=== PATIENT | female | born 1965 | race Caucasian/White ===

== ENCOUNTER → 2018-06-18 | Outpatient (CLI) | payer OTHER ==
[~2018-06-18] MED LIST: RT-ALBUTEROL SULF 2.5 MG/3 ML PRE-MIX VIAL INH ONE; RT-ALBUTEROL SULF 2.5 MG/3 ML PRE-MIX VIAL ONE
--- NOTE | 2018-06-18 19:07 | Diagnostic Imaging Report ---
INDICATION: Degenerative joint disease, hip pain. COMPARISON: None. FINDINGS: Single view of the pelvis and multiple views of bilateral hips demonstrate no fracture or dislocation. There is no significant joint space narrowing or sclerosis. SI joints are symmetric. There is no osseous lesion. IMPRESSION: Negative pelvis and bilateral hips. Dictated by: Dictated on workstation # [id number]
== END ==
LOC: RT 15:06
PROVIDERS: ATTEND Physical Medicine & Rehabilitation
DX: Z02.71 Encounter for disability determination (principal)
CPT/HCPCS: 73523; 94060

== ENCOUNTER 2018-11-26 03:07 | Emergency (ER) | payer MEDICAID ==
[~2018-11-26] VITALS: Ht 165.1 cm; Wt 164.2 kg
[2018-11-26] MEDS ORDERED: LISI-552 (03:50)
[2018-11-26] MEDS ORDERED: METF500T8 (03:50)
[2018-11-26] MEDS ORDERED: IPRA0.2S51 (03:50)
[2018-11-26] MEDS ORDERED: RT-ALBUINH (03:50)
[2018-11-26] MEDS ORDERED: TIOT18CA2 (03:50)
[2018-11-26 03:56] LABS: BILIRUBIN,URINE NEGATIVE (NEGATIVE); CLARITY,URINE CLEAR; COLOR,URINE YELLOW; GLUCOSE, URINE (UA) NEGATIVE (NEGATIVE); KETONES,URINE NEGATIVE (NEGATIVE); LEUKOCYTE ESTERASE ,URINE 1+ (NEGATIVE); NITRITE,URINE NEGATIVE (NEGATIVE); PH,URINE 6 (5-9); PROTEIN,URINE 1+ (NEGATIVE); UROBILINOGEN,URINE 4 MG/DL (NORMAL)
[2018-11-26 04:04] LABS: BACTERIA,URINE FEW /HPF
[2018-11-26] MEDS ORDERED: LABETALOL HCL 20 MG/4 ML VIAL IV ONE (04:15)
[2018-11-26 04:23] LABS: BASOPHILS % (AUTO) 0 % (0-10); EOSINOPHILS # (AUTO) 0.1 10^3/uL (0.0-0.3); EOSINOPHILS % (AUTO) 1 % (0-10); HEMATOCRIT 46 % (35-52); HEMOGLOBIN 14.9 G/DL (11.5-16.0); LYMPHOCYTES # (AUTO) 1.5 X 10^3 (1.0-4.0); LYMPHOCYTES % (AUTO) 15 % (12-44); MEAN CORPUSCULAR HEMOGLOBIN 29 PG (25-34); MEAN CORPUSCULAR HGB CONC 33 G/DL (32-36); MEAN CORPUSCULAR VOLUME 89 FL (80-99); MEAN PLATELET VOLUME 11.1 FL (7.4-10.4); MONOCYTES # (AUTO) 0.5 X 10^3 (0.0-1.0); MONOCYTES % (AUTO) 5 % (0-12); NEUTROPHILS # (AUTO) 7.7 X 10^3 (1.8-7.8); NEUTROPHILS % (AUTO) 78 % (42-75); PLATELET COUNT 154 10^3/uL (130-400); RED BLOOD COUNT 5.14 10^6/uL (4.35-5.85); RED CELL DISTRIBUTION WIDTH 14.7 % (10.0-14.5); WHITE BLOOD COUNT 9.8 10^3/uL (4.3-11.0)
[2018-11-26 04:46] LABS: ALANINE AMINOTRANSFERASE 32 U/L (0-55); ALBUMIN 3.8 GM/DL (3.2-4.5); ALKALINE PHOSPHATASE 98 U/L (40-136); BILIRUBIN,TOTAL 0.7 MG/DL (0.1-1.0); BUN/CREATININE RATIO 10; CARBON DIOXIDE 28 MMOL/L (21-32); CHLORIDE 104 MMOL/L (98-107); CREATININE SERUM 0.77 MG/DL (0.60-1.30); GFR ESTIMATED > 60; GLUCOSE 132 MG/DL (70-105); LIPASE 18 U/L (8-78); POTASSIUM 4.5 MMOL/L (3.6-5.0); SODIUM 143 MMOL/L (135-145); TOTAL PROTEIN 6.4 GM/DL (6.4-8.2)
[2018-11-26] MEDS ORDERED: ENALAPRILAT 2.5 MG/2 ML (VASOTEC) VIAL IV ONE (05:00)
[2018-11-26] MEDS ORDERED: CIPR-225 PO (06:20)
[2018-11-26] MEDS ORDERED: METR500T PO (06:20)
--- NOTE | 2018-11-26 06:21 | ED Abdominal Pain ---
General Chief Complaint: Abdominal/GI Problems Stated Complaint: ABD PAIN Nursing Triage Note: left lower abdominal pain/constipation. Sepsis Screen: No Definite Risk Source of Information: Patient Exam Limitations: No Limitations History of Present Illness Date Seen by Provider: Nov 26, 2018 Time Seen by Provider: 03:18 Initial Comments This 53-year-old woman presents to emergency room with complaints of lower abdominal pain in the suprapubic and left lower quadrant regions. This has been worsening for about 10 days. She has felt somewhat constipated but has been passing small stools daily. She denies any blood in her stools. She has had some nausea without vomiting. No diarrhea. She is notably hypertensive and admits to not taking her blood pressure medications yesterday because she was feeling ill. She is morbidly obese which limits her exam inability to obtain accurate blood pressures. She denies any fevers. Patient states a history of recurrent urinary tract infections. She denies any history of kidney stones. Allergies and Home Medications Allergies Coded Allergies: promethazine (Verified Allergy, Unknown, 11/26/18) Home Medications Ciprofloxacin HCl 500 Mg Tablet, 500 MG PO BID Prescribed by: VIVIAN LAY on 11/26/18 0620 Metronidazole 500 Mg Tablet, 500 MG PO TID Prescribed by: VIVIAN LAY on 11/26/18 0620 Patient Home Medication List Home Medication List Reviewed: Yes Review of Systems Review of Systems Constitutional: no symptoms reported EENTM: No Symptoms Reported Respiratory: No Symptoms Reported Cardiovascular: See HPI Gastrointestinal: See HPI Genitourinary: No Symptoms Reported Musculoskeletal: no symptoms reported Skin: no symptoms reported Psychiatric/Neurological: No Symptoms Reported Endocrine: No Symptoms Reported Hematologic/Lymphatic: No Symptoms Reported Past Uvbpsqv-Rggdey-Zlhcow Hx Past Med/Social Hx: Reviewed and Corrections made Patient Social History Alcohol Use: Denies Use Recreational Drug Use: Yes Drug of Choice: cannibus Smoking Status: Never a Smoker 2nd Hand Smoke Exposure: No Recent Foreign Travel: No Contact w/Someone Who Travel: No Recent Infectious Disease Expo: No Recent Hopitalizations: No Immunizations Up To Date Tetanus Booster (TDap): Unknown Seasonal Allergies Seasonal Allergies: No Past Medical History Surgeries: Yes Abdominal, Gallbladder, Hysterectomy Respiratory: Yes Asthma, COPD Currently Using CPAP: No Currently Using BIPAP: No Cardiac: Yes Hypertension Neurological: No : No Reproductive Disorders: No 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 oz. 164.131037bq; BMI Method:Stated General Appearance: WD/WN, no apparent distress, obese HEENT: PERRL/EOMI, normal ENT inspection, pharynx normal Neck: normal inspection Respiratory: lungs clear, normal breath sounds, no respiratory distress, no accessory muscle use Cardiovascular: regular rate, rhythm, no edema, no murmur Gastrointestinal: normal bowel sounds, soft, tenderness (Lower abdomen suprapubic region) Extremities: normal inspection, no pedal edema Neurologic/Psychiatric: sulfur burner II-XII nml as tested, no motor/sensory deficits, alert, normal mood/affect, oriented x 3 Skin: normal color, warm/dry Exam Comments Body habitus significantly limits exam Progress/Results/Core Measures Results/Orders Lab Results Laboratory Tests Test 11/26/18 03:38 11/26/18 04:15 Range/Units Urine Color YELLOW Urine Clarity CLEAR Urine pH 6 5-9 Urine Specific [place] 1.020 1.016-1.022 Urine Protein 1+ H NEGATIVE Urine Glucose (UA) NEGATIVE NEGATIVE Urine Ketones NEGATIVE NEGATIVE Urine Nitrite NEGATIVE NEGATIVE Urine Bilirubin NEGATIVE NEGATIVE Urine Urobilinogen 4 H NORMAL MG/DL Urine Leukocyte Esterase 1+ H NEGATIVE Urine RBC (Auto) 1+ H NEGATIVE Urine RBC 2-5 H /HPF Urine WBC 2-5 /HPF Urine Squamous Epithelial Cells 10-25 H /HPF Urine Crystals NONE /LPF Urine Bacteria FEW H /HPF Urine Casts NONE /LPF Urine Mucus NEGATIVE /LPF Urine Culture Indicated YES White Blood Count 9.8 4.3-11.0 10^3/uL Red Blood Count 5.14 4.35-5.85 10^6/uL Hemoglobin 14.9 11.5-16.0 G/DL Hematocrit 46 35-52 % Mean Corpuscular Volume 89 80-99 FL Mean Corpuscular Hemoglobin 29 25-34 PG Mean Corpuscular Hemoglobin Concent 33 32-36 G/DL Red Cell Distribution Width 14.7 H 10.0-14.5 % Platelet Count 154 130-400 10^3/uL Mean Platelet Volume 11.1 H 7.4-10.4 FL Neutrophils (%) (Auto) 78 H 42-75 % Lymphocytes (%) (Auto) 15 12-44 % Monocytes (%) (Auto) 5 0-12 % Eosinophils (%) (Auto) 1 0-10 % Basophils (%) (Auto) 0 0-10 % Neutrophils # (Auto) 7.7 1.8-7.8 X 10^3 Lymphocytes # (Auto) 1.5 1.0-4.0 X 10^3 Monocytes # (Auto) 0.5 0.0-1.0 X 10^3 Eosinophils # (Auto) 0.1 0.0-0.3 10^3/uL Basophils # (Auto) 0.0 0.0-0.1 10^3/uL Sodium Level 143 135-145 MMOL/L Potassium Level 4.5 3.6-5.0 MMOL/L Chloride Level 104 98-107 MMOL/L Carbon Dioxide Level 28 21-32 MMOL/L Anion Gap 11 5-14 MMOL/L Blood Urea Nitrogen 8 7-18 MG/DL Creatinine 0.77 0.60-1.30 MG/DL Estimat Glomerular Filtration Rate > 60 BUN/Creatinine Ratio 10 Glucose Level 132 H 70-105 MG/DL Calcium Level 9.0 8.5-10.1 MG/DL Corrected Calcium 9.2 8.5-10.1 MG/DL Total Bilirubin 0.7 0.1-1.0 MG/DL Aspartate Amino Transf (AST/SGOT) 17 5-34 U/L Alanine Aminotransferase (ALT/SGPT) 32 0-55 U/L Alkaline Phosphatase 98 40-136 U/L Total Protein 6.4 6.4-8.2 GM/DL Albumin 3.8 3.2-4.5 GM/DL Lipase 18 8-78 U/L My Orders Orders - VIVIAN HAMEED MD Ua Culture If Indicated (11/26/18 03:18) Urine Culture (11/26/18 03:38) Labetalol Injection (Normodyne Injection (11/26/18 04:15) Cbc With Automated Diff (11/26/18 04:10) Comprehensive Metabolic Panel (11/26/18 04:10) Lipase (11/26/18 04:10) Saline Lock/Iv-Start (11/26/18 04:10) Enalaprilat Injection (Vasotec Injection (11/26/18 05:00) Ct Abdomen/Pelvis W Wo (11/26/18 04:50) Oxycodone/Apap 5/325mg Tablet (Percocet (11/26/18 06:30) Ketorolac Injection (Toradol Injection) (11/26/18 06:30) Lisinopril Tablet (Zestril Tablet) (11/26/18 06:30) Medications Given in ED Current Medications Medications Dose Ordered Sig/Turner Route Start Time Stop Time Status Last Admin Dose Admin Ketorolac Tromethamine 15 mg ONCE ONCE IVP 11/26/18 06:30 11/26/18 06:31 DC 11/26/18 06:29 15 MG Lisinopril 20 mg ONCE ONCE PO 11/26/18 06:30 11/26/18 06:31 DC 11/26/18 06:29 20 MG Oxycodone/ Acetaminophen 1 tab ONCE ONCE PO 11/26/18 06:30 11/26/18 06:31 DC 11/26/18 06:28 1 TAB Vital Signs/I&O 11/26/18 11/26/18 11/26/18 03:41 06:28 06:35 Temp 97.8 98.0 98.0 Pulse 88 75 Resp 18 16 B/P (MAP) 200/111 (140) 174/93 (120) Pulse Ox 96 95 O2 Delivery Room Air Room Air Blood Pressure Mean: 140 Progress Progress Note : Progress Note Patient was first assessed with urinalysis. There was a very small amount of blood in her urine but it did not suggest significant infection. Further evaluation was pursued with blood work. Blood work was relatively unremarkable. I offered further assessment with a CT scan. Patient elected to proceed. CT of the abdomen and pelvis was performed with and without contrast. This modality was selected as interpretation of study could be difficult due to patient's body habitus. I was concerned about the possibility of ureteral stone versus a visceral pathology. Patient also later reported that she had a lower abdominal hernia which I also wanted to evaluate by CT scan. Patient was found to have notable diverticulitis. Patient was given Toradol and Percocet for her pain. Antibiotics were prescribed. Blood pressure was also major concern during this ER visit. Blood pressure was initially treated with labetalol which seemed to have no impact. After labs were reviewed enalaprilat was used which helped some. Blood pressures were difficult to obtain and a forearm cuff was used. After we successfully obtained a blood pressure from the upper arm she seemed to have more reasonable blood pressures. She was given her usual lisinopril 20 mg by mouth prior to dismissal as she would not be able to take her home medication for over an hour due to a long drive home. Diagnostic Imaging Diagonstic Imaging: CT Plain Films/CT/US/NM/MRI: abdomen, pelvis Comments CT abdomen and pelvis was viewed by me and [employer] report reviewed. There is diverticulitis and a fat-containing abdominal hernia. Departure Impression Primary Impression: Diverticulitis of intestine Qualified Codes: K57.32 - Diverticulitis of large intestine without perforation or abscess without bleeding Additional Impression: Hypertensive urgency Disposition: 01 HOME, SELF-CARE Condition: Improved Departure-Patient Inst. Decision time for Depature: 06:18 Referrals: NO,LOCAL PHYSICIAN (PCP/Family) Primary Care Physician Patient Instructions: Diverticulitis (DC) Add. Discharge Instructions: Complete your antibiotics as prescribed. Today's dose of lisinopril was given in the ER. Resume your usual dose tomorrow morning. Drink a clear liquid diet today. If well tolerated, resume eating tomorrow starting with small quantities of bland food as tolerated. Gradually advance your diet. You may take ibuprofen up to 600 mg every 6 hours as needed and/or Tylenol ( acetaminophen) up to 1000 mg every 6 hours as needed for pain. Follow-up with your primary care provider within the next week. Return to care if symptoms worsen. All discharge instructions reviewed with patient and/or family. Voiced understanding. Scripts Metronidazole (Flagyl) 500 Mg Tablet 500 MG PO TID, #21 TAB Prov: VIVIAN HAMEED MD 11/26/18 Ciprofloxacin HCl (Cipro) 500 Mg Tablet 500 MG PO BID, #14 TAB Prov: VIVIAN HAMEED MD 11/26/18 VIVIAN HAMEED MD Nov 26, 2018 06:21
[2018-11-26] MEDS ORDERED: lisINopril 20 MG (PRINIVIL) TABLET PO ONE (06:30)
[2018-11-26] MEDS ORDERED: oxyCODONE/APAP 5/325MG (PERCOCET 5) TABLET PO ONE (06:30)
[2018-11-26] MEDS ORDERED: KETOROLAC 30 MG/ML VIAL IVP ONE (06:30)
[2018-11-26 06:35] VITALS: BP 174/93
--- NOTE | 2018-11-26 08:17 | Diagnostic Imaging Report ---
PROCEDURE: CT abdomen and pelvis with and without contrast. TECHNIQUE: Precontrast acquisitions were acquired through the abdomen and pelvis. Multiple contiguous axial images were obtained through the abdomen and pelvis after the administration of intravenous contrast. INDICATION: Abdominal pain. No prior studies are available for comparison. The lung bases are clear. Liver shows some mild decreased density suggestive of hepatic steatosis but no discrete liver mass is identified. The gallbladder is surgically absent. No biliary duct dilatation is seen. The pancreas and spleen are unremarkable apart from splenic granulomas. No adrenal mass is identified. Left kidney contains a tiny nonobstructing calculus. Kidneys unremarkable. No hydronephrosis is seen. Aorta is calcified but nonaneurysmal. No central, retroperitoneal or mesenteric lymphadenopathy is seen. Bowel loops are normal caliber. There is significant diverticular disease of the sigmoid colon as well as the distal descending colon. There is mee-sigmoidal inflammatory stranding present and the features are most consistent with acute diverticulitis. No bowel obstruction or abscess formation is seen. Note is made of a fat-containing umbilical hernia. The bladder is decompressed. No pelvic lymphadenopathy is seen. Bony structures are nonacute. IMPRESSION: 1. Findings are most consistent with acute sigmoid diverticulitis. No abscess formation or bowel obstruction is identified. 2. Fat-containing umbilical hernia. Dictated by: Dictated on workstation # [id number]
== END 2018-11-26 06:39 | disposition home or self-care (01) ==
LOC: EDUNIT# 03:07 → ER 03:11
DX: K57.32 Diverticulitis of large intestine without perforation or abscess without bleeding (principal); I16.0 Hypertensive urgency; I10 Essential (primary) hypertension; E66.01 Morbid (severe) obesity due to excess calories; J44.9 Chronic obstructive pulmonary disease, unspecified; E11.9 Type 2 diabetes mellitus without complications; F19.10 Other psychoactive substance abuse, uncomplicated; Z87.440 Personal history of urinary (tract) infections; Z90.710 Acquired absence of both cervix and uterus; Z68.44 Body mass index [BMI] 60.0-69.9, adult
CPT/HCPCS: 36415; 74178; 80053; 81000; 83690; 85025; 87088

== ENCOUNTER 2019-01-21 05:37 | Outpatient (CLI) | payer MEDICAID ==
[~2019-01-21] VITALS: Ht 165.1 cm; Wt 169.2 kg
[~2019-01-21 05:37] MED LIST changes: +CIPR-225 PO; +IPRA0.2S51 IH; +LISI-552 PO; +METF500T8 PO; +METR500T PO; +RT-ALBUINH IH; -RT-ALBUTEROL SULF 2.5 MG/3 ML PRE-MIX VIAL INH ONE; -RT-ALBUTEROL SULF 2.5 MG/3 ML PRE-MIX VIAL ONE; +TIOT18CA2 IH
[2019-01-21] MEDS ORDERED: CHOL500049 PO (13:24)
== END 2019-01-21 13:27 | disposition home or self-care (01) ==
LOC: PREOP 05:37
PROVIDERS: ATTEND Surgery
DX: Z01.818 Encounter for other preprocedural examination (principal)

== ENCOUNTER 2019-01-24 21:05 | Outpatient (CLI) | payer MEDICAID ==
[~2019-01-24 21:05] MED LIST changes: +CHOL500049 PO
== END 2019-01-25 07:32 | disposition home or self-care (01) ==
LOC: SLEEP 21:05
PROVIDERS: ATTEND Nurse Practitioner
DX: G47.33 Obstructive sleep apnea (adult) (pediatric) (principal); G47.10 Hypersomnia, unspecified; R06.83 Snoring; I10 Essential (primary) hypertension
CPT/HCPCS: 95811

== ENCOUNTER 2019-01-27 10:01 | Day surgery (SDC) | payer MEDICAID ==
[~2019-01-27] VITALS: Ht 165.1 cm; Wt 169.2 kg
[2019-01-27 10:05] VITALS: BP 189/97
[2019-01-27] MEDS ORDERED: LACTATED RINGERS 1,000 ML IV STA (10:14)
[2019-01-27] MEDS ORDERED: LACTATED RINGERS 1,000 ML IV ONE ×2 (10:27→12:10)
--- OUTSIDE RECORDS SUMMARY | 2019-01-27 10:40 | XMS REPORT ---
Author Author LORI MONSON Organization [facility] Address [address] [place] [address] Care Team Providers Care Patient Safety Attendant Name Role Phone LORI MONSON Unavailable PROBLEMS Type Condition ICD9-CM Code [id number] Code Onset Dates Condition Status SNOMED Code Problem Obstructive sleep apnea G47.33 Active 79429302 Problem Chronic obstructive pulmonary disease, unspecified COPD type J44.9 Active 92336738 Problem Severe episode of recurrent major depressive disorder, without psychotic features F33.2 Active 95635433 Problem Primary hypertension I10 Active 03728881 ALLERGIES No Information ENCOUNTERS Encounter Location Date Diagnosis [place] [id number] [address] Jul, Primary hypertension I10 [facility] [address] [address] Jun, Primary hypertension I10 and Chronic obstructive pulmonary disease, unspecified COPD type J44.9 [place] [address] [address] Jun, Primary hypertension I10 ; Chronic obstructive pulmonary disease, unspecified COPD type J44.9 ; Obstructive sleep apnea G47.33 ; Lower extremity edema R60.0 ; Severe episode of recurrent major depressive disorder, without psychotic features F33.2 and BMI 45.0-49.9, adult Z68.42 IMMUNIZATIONS No Known Immunizations SOCIAL HISTORY Never Assessed REASON FOR VISIT Lab (walk-in) PLAN OF CARE VITAL SIGNS MEDICATIONS Unknown Medications RESULTS No Results PROCEDURES Procedure Date Ordered Result Body Site ASSAY THYROID STIM HORMONE Jul 15, 2018 ASSAY OF FREE THYROXINE Jul 15, 2018 COMPREHEN METABOLIC PANEL Jul 15, 2018 LIPID PANEL Jul 15, 2018 VENIPUNCT, ROUTINE* Jul 15, 2018 COMPLETE CBC W/AUTO DIFF WBC Jul 15, 2018 INSTRUCTIONS MEDICATIONS ADMINISTERED No Known Medications MEDICAL (GENERAL) HISTORY Type Description Date Medical History htn Medical History copd Medical History sleep apnea Medical History asthma Medical History abdominal hernia Medical History degenerative arthritis--hips and back Medical History cervical cancer Surgical History hysterectomy--cervical cancer 2003 Surgical History cholecystectomy Surgical History lipoma removed Hospitalization History seizure 2011 Hospitalization History surgery
--- OUTSIDE RECORDS SUMMARY | 2019-01-27 10:40 | XMS REPORT ---
Author Author LORI MONSON Organization [facility] [place] Address [address] [place] [address] Care Team Providers Care Health Services Coordinator Name Role Phone LORI MONSON Unavailable PROBLEMS Type Condition ICD9-CM Code [id number] Code Onset Dates Condition Status SNOMED Code Problem Obstructive sleep apnea G47.33 Active 86793360 Problem Chronic obstructive pulmonary disease, unspecified COPD type J44.9 Active 01262804 Problem Severe episode of recurrent major depressive disorder, without psychotic features F33.2 Active 19786860 Problem Primary hypertension I10 Active 28851114 ALLERGIES Substance Reaction Event Type Date Status phenergan restless leg syndrome Non Drug Allergy Jun, Active ENCOUNTERS Encounter Location Date Diagnosis [facility] [place] [address] [address] Jul, Primary hypertension I10 [facility] [place] [address] [address] Jun, Primary hypertension I10 and Chronic obstructive pulmonary disease, unspecified COPD type J44.9 [place] [address] [address] Jun, Primary hypertension I10 ; Chronic obstructive pulmonary disease, unspecified COPD type J44.9 ; Obstructive sleep apnea G47.33 ; Lower extremity edema R60.0 ; Severe episode of recurrent major depressive disorder, without psychotic features F33.2 and BMI 45.0-49.9, adult Z68.42 IMMUNIZATIONS No Known Immunizations SOCIAL HISTORY Never Assessed REASON FOR VISIT Establish Care/Blood Pressure FOREIGN [place] PLAN OF CARE Activity Details Follow Up 3 months or as indicated by lab Reason: VITAL SIGNS Height 66.5 in 2018-07-09 Weight 289.6 lbs 2018-07-09 Temperature 97.8 degrees Fahrenheit 2018-07-09 Heart Rate 84 bpm 2018-07-09 Respiratory Rate 20 2018-07-09 BMI 46.04 kg/m2 2018-07-09 Blood pressure systolic 162 mmHg 2018-07-09 Blood pressure diastolic 104 mmHg 2018-07-09 MEDICATIONS Medication Instructions Dosage Frequency Start Date End Date Duration Status Lisinopril 20 mg Orally Once a day 1 tablet 24h Jun, 30 day(s) Active ProAir HFA 108 (90 Base) MCG/ACT Inhalation every 6 hrs 2 puffs as needed 6h Jun, 30 days Active Spiriva HandiHaler 18 MCG Inhalation Once a day 1 capsule 24h Jun, Dec, 30 days Active RESULTS No Results PROCEDURES No Known procedures INSTRUCTIONS MEDICATIONS ADMINISTERED No Known Medications MEDICAL [...]
--- OUTSIDE RECORDS SUMMARY | 2019-01-27 10:41 | XMS REPORT ---
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 Role Phone LORI MONSON Unavailable PROBLEMS Type Condition ICD9-CM Code [id number] Code Onset Dates Condition Status SNOMED Code Problem Obstructive sleep apnea G47.33 Active 40660313 Problem Chronic obstructive pulmonary disease, unspecified COPD type J44.9 Active 76666764 Problem Severe episode of recurrent major depressive disorder, without psychotic features F33.2 Active 18763261 Problem Primary hypertension I10 Active 74204671 ALLERGIES No Information ENCOUNTERS Encounter Location Date Diagnosis [place] [address] [address] Jul, Primary hypertension I10 [facility] [address] [address] Jun, Primary hypertension I10 and Chronic obstructive pulmonary disease, unspecified COPD type J44.9 [place] [address] [address] Jun, Primary hypertension I10 ; Chronic obstructive pulmonary disease, unspecified COPD type J44.9 ; Obstructive sleep apnea G47.33 ; Lower extremity edema R60.0 ; Severe episode of recurrent major depressive disorder, without psychotic features F33.2 and BMI 45.0-49.9, adult Z68.42 IMMUNIZATIONS No Known Immunizations SOCIAL HISTORY Never Assessed REASON FOR VISIT Medications PLAN OF CARE VITAL SIGNS MEDICATIONS Medication Instructions Dosage Frequency Start Date End Date Duration Status Lisinopril 20 mg Orally Once a day 1 tablet 24h Jun, 90 days Active ProAir HFA 108 (90 Base) MCG/ACT Inhalation every 6 hrs 2 puffs as needed 6h Jun, 30 days Active Spiriva HandiHaler 18 MCG Inhalation Once a day 1 capsule 24h Jun, 30 days Active RESULTS No Results PROCEDURES [...]
[2019-01-27] MEDS ORDERED: PROPOFOL INJECTION 50 ML IV ONE ×2 (10:49→11:55)
[2019-01-27] MEDS ORDERED: MIDAZOLAM 2 MG/2 ML (VERSED) VIAL ONE ×2 (10:49→11:39)
[2019-01-27] MEDS ORDERED: ESMOLOL 100 MG/10 ML (BREVIBLOC) VIAL ONE (11:47)
--- NOTE | 2019-01-27 12:07 | Progress Note-Post Operative ---
Post-Operative Progess Note Surgeon (s)/Civil Process Server (s) Surgeon LACY TOLEDO DO Civil Process Server: na Pre-Operative Diagnosis hx of diverticulitis Post-Operative Diagnosis colon polyps, diverticulosis Procedure & Operative Findings Date of Procedure 01/27/19 Procedure Performed/Findings colonoscopy c hot bx polypectomy Anesthesia Type per clinical physician assistant Estimated Blood Loss Estimated blood loss (mL): none Specimens/Packing Specimens Removed colon polyps LACY TOLEDO DO Jan 27, 2019 12:07
--- NOTE | 2019-01-27 12:08 | Discharge Inst-Simple/Standard ---
Discharge Inst-Standard Patient Instructions/Follow Up Plan of Care/Instructions/FU: 2 weeks archana Activity as Tolerated: Yes Discharge Diet: Regular Diet (high fiber) LACY TOLEDO DO Jan 27, 2019 12:08
[2019-01-27 12:20] VITALS: BP 190/98
--- NOTE | 2019-01-27 12:49 | Anesthesia-General Post-Op ---
MAC Patient Condition Mental Status/LOC: Same as Preop Cardiovascular: Satisfactory Nausea/Vomiting: Absent Respiratory: Satisfactory Pain: Controlled Complications: Absent Post Op Complications Complications None Follow Up Care/Instructions Patient Instructions None needed. Anesthesiology Discharge Order Discharge Order Patient is doing well, no complaints, stable vital signs, no apparent adverse anesthesia problems. No complications reported per nursing. DRAKE BEASLEY CRNA Jan 27, 2019 12:49
[2019-01-27 13:00] VITALS: BP 195/99
[2019-01-27 13:14] VITALS: BP 195/99
--- NOTE | 2019-01-27 18:35 | OPERATIVE REPORT ---
DATE OF SERVICE: 01/27/2019 PREOPERATIVE DIAGNOSIS: History of diverticulitis. POSTOPERATIVE DIAGNOSES: Colon polyps x4 and diverticulosis. PROCEDURE PERFORMED: Colonoscopy with hot biopsy polypectomy x4. SURGEON: Lacy Bass DO. ANESTHESIA: Per CATEGORY MANAGER. ESTIMATED BLOOD LOSS: None. COMPLICATIONS: None. INDICATIONS: The patient is a 53-year-old female with a history of diverticulitis. She understands risks and benefits of procedure and wished to proceed with procedure. Consent was signed in the chart. DESCRIPTION OF PROCEDURE: The patient was taken to the endoscopy suite, placed in left lateral recumbent position. Timeout was performed. Digital rectal exam was performed. No palpable polyps, masses or ulcerations. Scope was inserted into the rectum and advanced all the way to the cecum with minimal difficulty. Prep was adequate with irrigation and suction. Scope was slowly retracted back. There were no polyps, mass or ulceration in the cecum. Within the ascending colon, a small polyp was present, which hot biopsy polypectomy was performed. Scope was continuously retracted back into the transverse colon, which had a small polyp, which hot biopsy polypectomy was performed. Scope was continuously retracted back and no other polyps, masses or ulcerations in the transverse colon. I started seeing some slight diverticulosis present. The scope was continuously retracted back into the descending colon and a large flat polyp was present, which hot biopsy polypectomy was performed. Scope was then continuously retracted back into the sigmoid colon at which another polyp was present which hot biopsy polypectomy was performed in the sigmoid colon polyp. Also moderate amount of diverticulosis was present. Scope was continuously retracted back into the rectum, where it was also retroflexed and no other pathology. The patient returned to normal position and slowly withdrawn until complete removed noting no other pathology. RECOMMENDATIONS: The patient would recommend repeat colonoscopy in three years unless any change in condition which should be reevaluated at that time. The patient is recommend high fiber diet. The patient will follow up in the office in 2 weeks. Job ID: [id number] DocumentID: [id number] Dictated Date: 01/27/2019 12:11:00 Wall Taper Date: 01/27/2019 18:35:29 Dictated By: LACY BASS DO
== END 2019-01-27 13:16 | disposition home or self-care (01) ==
LOC: ENDO 10:01
PROVIDERS: ATTEND Surgery
DX: D12.2 Benign neoplasm of ascending colon (principal); D12.3 Benign neoplasm of transverse colon; D12.4 Benign neoplasm of descending colon; D12.5 Benign neoplasm of sigmoid colon; K57.30 Diverticulosis of large intestine without perforation or abscess without bleeding; J43.9 Emphysema, unspecified; E11.9 Type 2 diabetes mellitus without complications; I10 Essential (primary) hypertension; F17.210 Nicotine dependence, cigarettes, uncomplicated; E66.01 Morbid (severe) obesity due to excess calories; Z68.44 Body mass index [BMI] 60.0-69.9, adult; Z85.41 Personal history of malignant neoplasm of cervix uteri; Z79.84 Long term (current) use of oral hypoglycemic drugs; Z79.899 Other long term (current) drug therapy
CPT/HCPCS: 82962

== ENCOUNTER 2022-01-19 10:30 | Outpatient (RCR) | payer MEDICAID ==
[~2022-01-19 10:30] MED LIST changes: -LISI-552 PO; +LISI20TA26 PO; +METF-865 PO; -METF500T8 PO
== END 2022-02-08 | disposition home or self-care (01) ==
LOC: CARD 10:30
PROVIDERS: ATTEND Nurse Practitioner
DX: I49.9 Cardiac arrhythmia, unspecified (principal)
CPT/HCPCS: 93270

== ENCOUNTER → 2022-03-28 | Outpatient (CLI) | payer MEDICAID ==
[~2022-03-28] VITALS: Ht 170 cm; Wt 123.0 kg
[~2022-03-28] MED LIST changes: +CATHETER FLUSH 10 ML SYR IVP PRN; +REGADENOSON 0.4 MG/5 ML SYR (LEXISCAN) IV ONE
[2022-03-28 13:20] VITALS: BP 120/79
[2022-03-28 13:22] VITALS: BP 118/73
[2022-03-28 13:29] VITALS: BP 141/83
[2022-03-28 13:32] VITALS: BP 122/69
--- NOTE | 2022-03-28 16:10 | Cardiology Stress Test Report ---
Stress Test Report Date of Procedure/Referring: Date of Procedure: March 28, 2022 PCP No,Local Physician Admitting Physician Admitting Physician: Attending Physician: Adriane Jara MD Indications: HTN Baseline Heart Rate: 71 Baseline Blood Pressure: Blood Pressure Systolic: 122 Blood Pressure Diastolic: 69 Baseline Vitals Vital Signs Date Time Temp Pulse Resp B/P (MAP) Pulse Ox O2 Delivery O2 Flow Rate FiO2 03/28/22 13:20 71 120/79 (93) 03/28/22 13:32 19 Room Air Baseline EKG: Baseline EKG: NSR Summary After explaining the procedure to the patient, she signed a consent and then brought to the stress nuclear laboratory. Patient received 0.4 mg Lexiscan for stress test, ECG, heart rate and blood pressure were monitored continuously. Resting and stress dose of radio tracer were injected, imaging was acquired and reviewed in short axis, horizontal long axis and vertical long axis views. TID: 1.02 SSS: 8 SDS: 3 EF: 80 1. Patient tolerated Lexiscan well 2. Extracardiac attenuation with the left arm being down during acquisition of the images with questionable reversible ischemia involving the mid to apical inferior wall and inferolateral wall 3. Normal left ventricular size, normal contractility, ejection fraction 80% ADRIANE JARA MD March 28, 2022 16:10
== END ==
LOC: CARD 11:30
PROVIDERS: ATTEND Internal Medicine Cardiovascular Disease
DX: I49.9 Cardiac arrhythmia, unspecified (principal); I25.10 Atherosclerotic heart disease of native coronary artery without angina pectoris; I10 Essential (primary) hypertension
CPT/HCPCS: 78452; 93017; 93306

== ENCOUNTER 2022-04-04 10:00 | Day surgery (SDC) | payer MEDICAID ==
[~2022-04-04] VITALS: Ht 170.2 cm; Wt 130.5 kg
[2022-04-04] VITALS (11 sets, daily range): BP systolic 101–130; BP diastolic 67–91
--- NOTE | 2022-04-04 09:51 | Diagnostic Imaging Report ---
Indication: Cardiac abnormality, preop Portable chest 9:26 AM Heart size and pulmonary vascularity are normal. Lungs are clear. There are no effusions or pneumothoraces. IMPRESSION: No acute abnormalities in the chest. Dictated by: Dictated on workstation # [id number]
[2022-04-04 09:54] LABS: BILIRUBIN,URINE NEGATIVE (NEGATIVE); CLARITY,URINE SL CLOUDY; COLOR,URINE ORANGE; GLUCOSE, URINE (UA) NEGATIVE (NEGATIVE); KETONES,URINE NEGATIVE (NEGATIVE); LEUKOCYTE ESTERASE ,URINE 2+ (NEGATIVE); NITRITE,URINE NEGATIVE (NEGATIVE); PH,URINE 5.5 (5-9); PROTEIN,URINE NEGATIVE (NEGATIVE)
[2022-04-04 09:58] LABS: HEMATOCRIT 44 % (35-52); HEMOGLOBIN 14.6 g/dL (11.5-16.0); MEAN CORPUSCULAR HEMOGLOBIN 31 pg (25-34); MEAN CORPUSCULAR HGB CONC 33 g/dL (32-36); MEAN CORPUSCULAR VOLUME 93 fL (80-99); MEAN PLATELET VOLUME 11.8 fL (9.0-12.2); PLATELET COUNT 209 10^3/uL (130-400); WHITE BLOOD COUNT 11.8 10^3/uL (4.3-11.0)
[~2022-04-04 10:00] MED LIST changes: -CATHETER FLUSH 10 ML SYR IVP PRN; +HEParin (CATH LAB) 2,000 ML IV ONE; +LIDOCAINE 1% INJ 20 ML VIAL ONE; +NS IV 1000 ML 1,000 ML IV SCH; +NS IV 1000 ML 1,000 ML ONE; -REGADENOSON 0.4 MG/5 ML SYR (LEXISCAN) IV ONE
[2022-04-04 10:06] LABS: POTASSIUM 3.6 MMOL/L (3.6-5.0)
[2022-04-04 10:07] LABS: ALBUMIN 4.1 GM/DL (3.2-4.5)
[2022-04-04 10:08] LABS: CALCIUM 9.9 MG/DL (8.5-10.1)
[2022-04-04 10:09] LABS: TOTAL PROTEIN 7.3 GM/DL (6.4-8.2)
[2022-04-04 10:11] LABS: BILIRUBIN,TOTAL 0.5 MG/DL (0.1-1.0)
[2022-04-04 10:12] LABS: BACTERIA,URINE MODERATE /HPF; WBC,URINE 25-50 /HPF
[2022-04-04 10:13] LABS: CREATININE SERUM 1.31 MG/DL (0.60-1.30)
[2022-04-04 10:16] LABS: PROTHROMBIN TIME PATIENT 13.2 SEC (12.2-14.7)
[2022-04-04] MEDS ORDERED: MTP25TSR PO (10:29)
[2022-04-04] MEDS ORDERED: ATOR40TA70 PO (10:29)
[2022-04-04] MEDS ORDERED: ATOR20TA66 PO (10:29)
[2022-04-04] MEDS ORDERED: LISI20TA26 PO (10:29)
[2022-04-04] MEDS ORDERED: DULA3PEN SQ (10:29)
[2022-04-04] MEDS ORDERED: METH-336 PO (10:29)
[2022-04-04] MEDS ORDERED: IBUP-1773 PO (10:29)
[2022-04-04] MEDS ORDERED: CYCL10TA25 PO (10:29)
[2022-04-04] MEDS ORDERED: METF-478 PO (10:29)
[2022-04-04] MEDS ORDERED: ASPI-808 PO (10:29)
[2022-04-04] MEDS ORDERED: UMEC1BLS IH (10:29)
[2022-04-04] MEDS ORDERED: CHLO50TA2 PO (10:29)
[2022-04-04] MEDS ORDERED: NITRO DRIP 25000 MCG/D5W 250 ML IV ONE (11:37)
[2022-04-04] MEDS ORDERED: MIDAZOLAM 5 MG/5 ML (VERSED) VIAL ONE (11:37)
[2022-04-04] MEDS ORDERED: HEParin 1000 UNIT/ML (10ML VIAL) FOR BOLUS ONE (11:37)
[2022-04-04] MEDS ORDERED: VERAPAMIL 5 MG/2 ML (CALAN) VIAL IV ONE (11:37)
[2022-04-04] MEDS ORDERED: fentaNYL INJ 100 MCG/2 ML AMP ONE (11:37)
[2022-04-04] MEDS ORDERED: CLOPIDOGREL 300 MG (PLAVIX) TABLET PO ONE (12:55)
[2022-04-04] MEDS ORDERED: ASPIRIN 325 MG (5 GR) TABLET ONE (12:55)
--- NOTE | 2022-04-04 12:56 | Conscious Sedation/ASA ---
Conscious Sedation Pre-Proced Time 11:00 ASA Score 3 For ASA 3 and 4: Consider anesthesia and medical clearance. Also, for patients with a history of failed moderate sedation consider anesthesia. Airway Lungs Heart ASA score ASA 1: a normal healthy patient ASA 2: a patient with a mild systemic disease (mid diabetes, controlled hypertension, obesity x ASA 3: a patient with a severe systemic disease that limits activity (angina, COPD, prior Myocardial infarction) ASA 4: a patient with an incapacitating disease that is a constant threat to life (CHF, renal failure) ASA 5: a moribund patient not expected to survive 24 hrs. (ruptured aneurysm) ASA 6: a declared brain- patient whose organs are being harvested. For emergent operations, add the letter E after the classification Mallampati Classification Grade 3 Sedation Plan Analgesia, Amnesia, Plan communicated to team members, Discussed options with patient/fam, Discussed risks with patient/fam The patient is an appropriate candidate to undergo the planned procedure, sedation, and anesthesia. The patient immediately re-assessed prior to indication. ADRIANE PIKE MD April 04, 2022 12:56
[2022-04-04] MEDS ORDERED: NON-FORMULARY MEDICATION 1 EA EA (Dulaglutide (Trulicity) 3 MG) SQ SCH (13:00)
[2022-04-04] MEDS ORDERED: IBUPROFEN 600 MG (MOTRIN) TAB PO PRN (13:00)
[2022-04-04] MEDS ORDERED: METHYLCELLULOSE (CITRUCEL) 500 MG CAPLET PO PRN (13:00)
--- NOTE | 2022-04-04 13:03 | Cardiac Cath Report ---
Cardiac Cath Report Physician (s)/Adventure Guide (s) Physician ADRIANE PIKE MD Pre-Procedure Diagnosis Pre-Procedure Diagnosis: Coronary artery disease Post-Procedure Note Procedure Start Date: April 04, 2022 Name of Procedure: Left heart catheterization Stenting to the circumflex artery Findings/Procedure Note PROCEDURE NOTE: 56-year-old lady with history of hypertension, hyperlipidemia, diabetes mellitus, had an abnormal stress test, has been having chest pain, scheduled for cardiac catheterization possible PTCA. After explaining the procedure to the patient, all pros and cons were explained, all questions were answered. The patient signed the consent and then she was placed on the cardiac catheterization laboratory. Groin was prepped SL fashion local anesthesia was used. Sheath placed in the right radial artery, Dover catheter was advanced to the left ventricular cavity, pressure was measured, pullback LV to aorta was done, engage the right and left coronary system, angiogram was done. Patient had severe stenosis at 2 segments of the circumflex artery proximally there is 80% stenosis distally 95% stenosis. Patient received a total of 6000 units of heparin, EBU 4 guide was advanced to the left coronary system, BMW wire was advanced and parked distally. I proceeded with predilatation using 2.5 x 20 mm balloon. Then I attempted to advance 2.5 x 23 mm stent without success distally. The artery was resistant. I readvanced the balloon and did another 2 inflation then I advanced a 2.25 x 18 mm jessica point stent, deployed under 14 clara to 2.35 with excellent results. Then for the proximal lesion I proceeded with primary stenting using 3 x 8 jessica point stent deployed under 12 clara with excellent results. At the end of the procedure the sheath was removed. Vascular band was used FINDINGS: Hemodynamics LV 108/14, end-diastolic pressure of 14 Aorta 109/79 mean of 89 ANATOMY: Left Main is free of obstructive disease Left Anterior Descending is slightly tortuous artery with 40 to 50% stenosis at the midportion nonobstructive disease Left Circumflex has multiple segment of severe stenosis proximally there is 80% stenosis distally 95% stenosis successful balloon angioplasty with complex deployment of 2 jessica point stents proximally 3 x 8 mm. Then at the distal lesion 2.25 x 18 mm stent expanded to 2.35. Right Coronary Artery is large dominant artery with mild to moderate disease nonobstructive disease LV Gram was not done pressure was measured CONCLUSION: 1. Severe stenosis at the proximal circumflex artery with successful deployment of jessica point stent 3 x 8 mm. Severe stenosis at the distal circumflex artery with successful deployment of 2.25 x 18 mm stent expanded to 2.35. 2. Tortuous LAD with 40 to 50% stenosis at the midportion. Large dominant right coronary artery with mild to moderate disease at the midportion 3. Mildly elevated left ventricular end-diastolic pressure DISCUSSION AND RECOMMENDATION: Patient was loaded with aspirin and Plavix. We will resume home medication monitor. Anesthesia Type: Conscious Sedation Estimated blood loss (mL): 25 ml Contrast Amount: 90 ml Total Radiation Dose: 1781 mGy Post-Procedure Diagnosis Post-operative diagnosis: Chest pain Coronary artery disease Hypertension Hyperlipidemia Diabetes mellitus ADRIANE PIKE MD April 04, 2022 13:03
[2022-04-04] MEDS: NS IV 1000 ML 1,000 ML IV SCH ×2 (13:31→22:53)
[2022-04-04] MEDS: CYCLOBENZAPRINE 10 MG (FLEXERIL) TAB PO SCH (19:44)
[2022-04-05 00:02] VITALS: BP_SYST 115; BP_SYST 120; BP_DIAS 69; BP_DIAS 72
[2022-04-05] MEDS: RT-ALBUTEROL HFA 8.5 GM INHALER IH SCH ×2 (00:03→06:13)
[2022-04-05 03:01] VITALS: BP 105/72
[2022-04-05] MEDS ORDERED: CLOP75TA28 PO (05:41)
[2022-04-05] MEDS ORDERED: PANT40SU PO (05:41)
[2022-04-05] MEDS ORDERED: ASPI-1238 PO (05:41)
[2022-04-05] MEDS ORDERED: METF-478 PO (05:41)
--- NOTE | 2022-04-05 05:42 | Discharge Inst-Post CATH ---
Discharge Inst-CATH/EP Problems Reviewed?: Yes Post Cardiac Cath/EP D/C Inst Follow Up/Plan Hold Metformin for [address] Jara in 2-4 weeks <b>CARDIAC CATH/EP PROCEDURE DISCHARGE INSTRUCTIONS</b> ACTIVITY * Go Home directly and rest. * Limit activity of the leg (or wrist if it was used) for 7 days including aerobics, swimming, jogging, bicycling, etc. * Restrict stair-climbing for 7 days if possible, if not, climb up with your non-cath leg, then bring together on the same step. * Avoid lifting, pushing, pulling or excessive movement of the affected extremity for 7 days. * Customary sexual activity may be resumed after 2 days-use caution not to use a position that strains or causes pain to the affected extremity. * No driving for 24 hours. * NO SMOKING. * Avoid straining for bowel movements for 7 days. * Gentle walking on level ground is allowed. * Returning to work will depend on the type of procedure and the results. Your doctor will discuss this with you. CALL YOUR DOCTOR FOR ANY OF THE FOLLOWING: *If bleeding from the puncture site occurs- Apply gentle pressure to site with clean cloth and call your doctor or EMS. * If a knot or lump forms under the skin, increases in size, or causes pain. * If bruising appears to be worsening or moving further down your leg instead of disappearing. * Temperature above 101 F. CARE OF YOUR GROIN INCISION; * Bruising or purple discoloration of the skin near the puncture site is common. * You may shower only, no bathtub bathing for 5 days. Be careful to avoid slipping as your leg may feel stiff. * If a closure device was used on your femoral artery, please see the attached guide regarding care of the device and your leg. * Leave dressing on FOR 24 hours. CARE OF YOUR WRIST INCISION; * Bruising or purple discoloration of the skin near the puncture site is common. * You may shower. * DO NOT submerge wrist. * Leave dressing on FOR 24 hours. ADRIANE JARA MD April 05, 2022 05:42
--- NOTE | 2022-04-05 07:43 | Cardiology Progress Note ---
Subjective Date Seen by Provider: April 05, 2022 Time Seen by Provider: 07:42 Subjective/Events-last exam Patient is laying down in bed. Feeling better. No new complaint. Wrist is healing well. Review of Systems General: No Chills, No Night Sweats, No Fatigue, No Malaise, No Appetite, No O ther HEENT: No Head Aches, No Visual Changes, No Eye Pain, No Ear Pain, No Dys phasia, No Sinus Congestion, No Post Nasal Drip, No Sore Throat, No Other Pulmonary: No Dyspnea, No Cough, No Pleuritic Chest Pain, No Other Cardiovascular: No: Chest Pain, Palpitations, Orthopnea, Paroxysmal Noc. Dyspnea, Edema, Lt Headedness, Other Objective-Cardiology Exam Last Set of Vital Signs Vital Signs 04/05/22 03:01 Temp 36.0 Pulse 65 Resp 14 B/P (MAP) 105/72 (83) Pulse Ox 99 O2 Delivery NIV CPAP I&O Intake and Output 04/05/22 00:00 Intake Total 750 ml Output Total 0 ml Balance 750 ml Intake Oral 750 ml Output Urine Total 0 ml # Voids 2 General: Alert, Oriented X3, Cooperative HEENT: Atraumatic, PERRLA Neck: Supple, No JVD, No Thyromegaly Lungs: Clear to Auscultation, Normal Air Movement Heart: Regular Rate, Normal S1, Normal S2, No Murmurs Abdomen: Normal Bowel Sounds, Soft, No Tenderness, No Hepatosplenomegaly, No Masses Extremities: No Clubbing, No Cyanosis, No Edema, Normal Pulses, No Tenderness/Swelling Skin: No Rashes, No Breakdown, No Significant Lesion Neuro: Normal Gait, Normal Speech, Strength at 5/5 X4 Ext, Normal Tone, Sensation Intact Psych/Mental Status: Mental Status NL, Mood NL Results Lab Laboratory Tests 04/04/22 09:51 A/P-Cardiology Admission Diagnosis Coronary artery disease Hypertension Hyperlipidemia Diabetes mellitus Assessment/Plan Coronary artery disease, status post cardiac catheterization with complex intervention 2 stents deployment to the proximal and distal circumflex arteries with excellent results. Educated on aspirin and Plavix. She will need to be on dual antiplatelet therapy for at least 6 months. Hypertension, continue current medication monitor blood pressure Hyperlipidemia, continue Lipitor 60 mg daily and monitor lipids Diabetes mellitus, educated on holding metformin for 48 hours, managed by primary care physician Obesity, BMI 45 ADRIANE PIKE MD April 05, 2022 07:43
[2022-04-05 07:51] VITALS: BP 116/73
[2022-04-05] MEDS: NS IV 1000 ML 1,000 ML IV SCH (07:52)
[2022-04-05] MEDS: CYCLOBENZAPRINE 10 MG (FLEXERIL) TAB PO SCH (07:58)
[2022-04-05] MEDS ORDERED: UMECLIDINIUM BROMIDE (INCRUSE ELLIPTA) 7'S IH SCH (08:00)
[2022-04-05] MEDS ORDERED: CHLORTHALIDONE 50 MG PO SCH (09:00)
[2022-04-05] MEDS ORDERED: ASPIRIN E.C. 81 MG (ECOTRIN) TAB PO SCH (09:00)
[2022-04-05] MEDS ORDERED: CLOPIDOGREL 75 MG (PLAVIX) TABLET PO SCH (09:00)
[2022-04-05] MEDS ORDERED: lisINopril 20 MG (PRINIVIL) TABLET PO SCH (09:00)
== END 2022-04-05 09:34 | disposition home or self-care (01) ==
LOC: CATH 10:00 → CSD 13:14 → CATH 04-05 09:34
PROVIDERS: ATTEND Internal Medicine Cardiovascular Disease
DX: I25.10 Atherosclerotic heart disease of native coronary artery without angina pectoris (principal); I10 Essential (primary) hypertension; E78.5 Hyperlipidemia, unspecified; E11.9 Type 2 diabetes mellitus without complications; E66.01 Morbid (severe) obesity due to excess calories; Z68.42 Body mass index [BMI] 45.0-49.9, adult; I48.0 Paroxysmal atrial fibrillation; I49.1 Atrial premature depolarization; G47.33 Obstructive sleep apnea (adult) (pediatric); J44.9 Chronic obstructive pulmonary disease, unspecified; R00.2 Palpitations; F17.210 Nicotine dependence, cigarettes, uncomplicated; Z79.899 Other long term (current) drug therapy; Z79.84 Long term (current) use of oral hypoglycemic drugs; Z79.82 Long term (current) use of aspirin
CPT/HCPCS: 36415; 71045; 80053; 80061; 81000; 85027; 85610; 85730; 87077; 87081; 87088; 87186; 93005; 93458

== ENCOUNTER 2023-03-20 05:50 | Outpatient (CLI) | payer MEDICAID ==
[~2023-03-20] VITALS: Ht 170.2 cm; Wt 136.5 kg
[~2023-03-20 05:50] MED LIST changes: +ALBU8.5H6 IH; +ASPI-1238 PO; +ASPI-808 PO; +ATOR20TA66 PO; +ATOR40TA70 PO; +CHLO50TA2 PO; +CLOP75TA28 PO; +CYCL10TA25 PO; +DULA3PEN SQ; -HEParin (CATH LAB) 2,000 ML IV ONE; +IBUP-1773 PO; -LIDOCAINE 1% INJ 20 ML VIAL ONE; +METF-478 PO; +METH-336 PO; +MTP25TSR PO; -NS IV 1000 ML 1,000 ML IV SCH; -NS IV 1000 ML 1,000 ML ONE; +PANT40SU PO; -RT-ALBUINH IH; +UMEC1BLS IH
[2023-03-21] MEDS ORDERED: AMIT100T2 PO (14:44)
[2023-03-21] MEDS ORDERED: LEVO50CA4 PO (14:44)
[2023-03-21] MEDS ORDERED: SERT-413 PO (14:44)
== END 2023-03-21 14:56 | disposition home or self-care (01) ==
LOC: PREOP 05:50
PROVIDERS: ATTEND Surgery
DX: Z01.818 Encounter for other preprocedural examination (principal); Z12.11 Encounter for screening for malignant neoplasm of colon; Z86.010 Personal history of colon polyps

== ENCOUNTER 2023-04-02 08:44 | Day surgery (SDC) | payer MEDICAID ==
[~2023-04-02] VITALS: Ht 170.2 cm; Wt 136.5 kg
[~2023-04-02 08:44] MED LIST changes: +AMIT100T2 PO; +LEVO50CA4 PO; +SERT-413 PO
[2023-04-02] MEDS ORDERED: LACTATED RINGERS 1,000 ML IV STA (09:09)
[2023-04-02 09:25] VITALS: BP 100/73
[2023-04-02] MEDS ORDERED: PROPOFOL INJECTION 50 ML IV ONE ×2 (11:22→11:48)
[2023-04-02] MEDS ORDERED: MIDAZOLAM 2 MG/2 ML (VERSED) VIAL ONE (11:22)
[2023-04-02 12:00] VITALS: BP 113/57
--- NOTE | 2023-04-02 12:01 | Discharge Inst-Simple/Standard ---
Discharge Inst-Standard Patient Instructions/Follow Up Plan of Care/Instructions/FU: follow up with Shelia in two weeks Activity as Tolerated: Yes Discharge Diet: Regular Diet LACY TOLEDO DO April 02, 2023 12:01
--- NOTE | 2023-04-02 12:03 | Progress Note-Post Operative ---
Post-Operative Progess Note Surgeon (s)/Junior Project Manager (s) Surgeon LACY TOLEDO DO Junior Project Manager: na Pre-Operative Diagnosis Hx of polyps Post-Operative Diagnosis Rectal polyp Procedure & Operative Findings Date of Procedure 04/02/23 Procedure Performed/Findings colonoscopy with hot biopsy polypectomy x1 Anesthesia Type per ROLL CAPPER Estimated Blood Loss Estimated blood loss (mL): none Specimens/Packing Specimens Removed rectum LACY TOLEDO DO April 02, 2023 12:03
[2023-04-02 12:05] VITALS: BP 122/57
[2023-04-02 12:10] VITALS: BP 105/65
[2023-04-02 12:45] VITALS: BP 105/65
--- NOTE | 2023-04-02 14:48 | Anesthesia-General Post-Op ---
MAC Patient Condition Mental Status/LOC: Same as Preop Cardiovascular: Satisfactory Nausea/Vomiting: Absent Respiratory: Satisfactory Pain: Controlled Complications: Absent Post Op Complications Complications None Follow Up Care/Instructions Patient Instructions None needed. Anesthesiology Discharge Order Discharge Order Patient is doing well, no complaints, stable vital signs, no apparent adverse anesthesia problems. No complications reported per nursing. RAMONA ESPANA CRNA April 02, 2023 14:48
--- NOTE | 2023-04-02 19:05 | OPERATIVE REPORT ---
DATE OF SERVICE: 04/02/2023 PREOPERATIVE DIAGNOSIS: History of polyps. POSTOPERATIVE DIAGNOSIS: Rectal polyp. PROCEDURE: Colonoscopy with hot biopsy polypectomy x1. SURGEON: Lacy aBss DO ANESTHESIA: Per ROOF PANEL HANGER. ESTIMATED BLOOD LOSS: None. COMPLICATIONS: None. INDICATIONS: The patient is a 57-year-old female with history of polyps. She understands risks and benefits of procedure and wished to proceed. Consent was signed in chart. DESCRIPTION OF PROCEDURE: The patient was taken to endoscopy suite, placed in left lateral recumbent position. Timeout was performed. Digital rectal exam was performed. No palpable polyps, masses or ulcerations. Scope was inserted in the rectum, advanced all the way to the cecum with minimal difficulty. Prep was adequate. Scope was slowly retracted back. No polyps, masses or ulcerations in the cecum, ascending, transverse, descending and sigmoid colon, some diverticulosis present in the sigmoid colon. In the rectum, a small polyp was present, which hot biopsy polypectomy was performed. Scope was then retroflexed noting no other pathology. Scope was returned to its normal position, slowly withdrawn until completely removed. The patient will follow up in 2 weeks. She will need repeat colonoscopy in 5 years. Any issues before that, be seen at that time. Job ID: [id number] DocumentID: [id number] Dictated Date: 04/02/2023 12:02:02 Spud Grader Date: 04/02/2023 19:03:00 Dictated By: LACY BASS DO
== END 2023-04-02 12:45 | disposition home or self-care (01) ==
LOC: ENDO 08:44
PROVIDERS: ATTEND Surgery
DX: Z12.11 Encounter for screening for malignant neoplasm of colon (principal); K62.1 Rectal polyp; Z95.5 Presence of coronary angioplasty implant and graft; F17.210 Nicotine dependence, cigarettes, uncomplicated; G47.33 Obstructive sleep apnea (adult) (pediatric); E66.01 Morbid (severe) obesity due to excess calories; Z28.310 Unvaccinated for COVID-19; Z85.41 Personal history of malignant neoplasm of cervix uteri; Z79.02 Long term (current) use of antithrombotics/antiplatelets; Z68.42 Body mass index [BMI] 45.0-49.9, adult